=== PATIENT | male | born 1940 | race Caucasian/White ===

== ENCOUNTER → 2016-06-16 | Outpatient (CLI) | payer OTHER | LOC: BHFA 14:30 | PROVIDERS: ATTEND Internal Medicine Cardiovascular Disease | DX: M79.605 Pain in left leg (principal); I70.90 Unspecified atherosclerosis ==

== ENCOUNTER → 2016-07-22 | Outpatient (CLI) | payer OTHER ==
[~2016-07-22] MED LIST: IOPAMIDOL (ISOVUE 370) 100 ML BTL IV ONE
[2016-07-22 10:08] LABS: CREATININE 0.8 mg/dL (0.7-1.3); GLOMERULAR FILTRATION RATE > 60
== END ==
LOC: FIMAGING 09:16
PROVIDERS: ATTEND Surgery
DX: I74.3 Embolism and thrombosis of arteries of the lower extremities (principal); I74.5 Embolism and thrombosis of iliac artery; I72.4 Aneurysm of artery of lower extremity
CPT/HCPCS: 75635; Q9967

== ENCOUNTER 2016-09-25 08:33 | Observation (INO) | payer OTHER ==
[2016-09-25] MEDS ORDERED: DIAZEPAM 5 MG TAB PO ONE (08:37)
[2016-09-25] MEDS ORDERED: FAMOTIDINE 20 MG/NACL 50 ML IV ONE (08:37)
[2016-09-25] MEDS ORDERED: ASPIRIN EC 325 MG TAB PO ONE (08:37)
[2016-09-25] MEDS ORDERED: NS 1,000 ML IV ONE (08:37)
[2016-09-25] MEDS ORDERED: methylPREDNISolone SOD SUCC 125 MG/2 ML VIAL IVP ONE (08:37)
[2016-09-25 09:16] LABS: % IMMATURE GRANULYOCYTES 0.3 % (0.0-1.1); ABSOLUTE IMMATURE GRANULOCYTES 0.02 10^3/uL (0.00-0.10); ADD DIFF? NO; ADD MORPH? NO; ADD SCAN? NO; ATYPICAL LYMPHOCYTE FLAG 10 (0-99); FRAGMENT RBC FLAG 0 (0-99); HEMATOCRIT 45.3 % (40.0-51.0); HEMOGLOBIN 15.8 g/dL (13.7-17.5); LEFT SHIFT FLG 0 (0-99); LIPEMIA HEMOLYSIS FLAG 90 (0-99); MEAN CELL HEMOGLOBIN CONCENTR. 34.9 g/dL (32.4-36.7); MEAN CELL VOLUME 88.8 fL (81.5-99.8); MEAN PLATELET VOLUME 10.3 fL (8.7-11.7); PLATELET CLUMPS FLAG 0 (0-99); PLATELET COUNT 149 10^3/uL (150-400); RED CELL DISTRIBUTION WIDTH 13.1 % (11.5-15.2)
[2016-09-25 09:29] LABS: ANION GAP 13 mEq/L (8-16); CALCIUM 9.5 mg/dL (8.5-10.4); CARBON DIOXIDE 24 mEq/l (22-31); CHLORIDE 107 mEq/L (97-110); CHOLESTEROL 128 mg/dL (140-220); CREATININE 0.9 mg/dL (0.7-1.3); GLOMERULAR FILTRATION RATE > 60; GLUCOSE 100 mg/dL (70-100); HIGH DENSITY LIPOPROTEIN 40 mg/dL (40-65); LDL/HDL RATIO 1.73 RATIO (1.00-3.64); LOW DENSITY LIPOPROTEIN 69 mg/dL (80-100); MAGNESIUM 2.1 mg/dL (1.6-2.3); NON-HIGH DENSITY LIPOPROTEIN 88 mg/dL (90-129); POTASSIUM 4.4 mEq/L (3.5-5.2); SODIUM 144 mEq/L (134-144); TRIGLYCERIDE 96 mg/dL (40-150); VERY LOW DENSITY LIPOPROTEINS 19 mg/dL (8-25)
[2016-09-25 09:38] LABS: INR 1.1 (0.83-1.16); PROTIME(PATIENT) 14.1 SEC (12.0-15.0)
--- NOTE | 2016-09-25 09:45 | CPEKG ---
Heart Rate: 57 RR Interval: 1053 P-R Interval: 152 QRSD Interval: 88 QT Interval: 444 QTC Interval: 433 P Fontana: 35 QRS Fontana: -16 T Wave Fontana: 25 EKG Severity - OTHERWISE NORMAL ECG - EKG Impression: SINUS RHYTHM EKG Impression: BORDERLINE LEFT AXIS DEVIATION Electronically Signed By: Linden Almaguer 25-Sep-2016 16:06:07
[2016-09-25] MEDS ORDERED: LIDOCAINE 1% 300 MG/30 ML SDV ONE (11:08)
[2016-09-25] MEDS ORDERED: IOPAMIDOL (ISOVUE-370) 150 ML BTL IV ONE (11:09)
[2016-09-25] MEDS ORDERED: MIDAZOLAM 2 MG/2 ML VIAL ONE ×2 (11:09→11:45)
[2016-09-25] MEDS ORDERED: fentaNYL 100 MCG/2 ML INJ ONE (11:09)
[2016-09-25] MEDS ORDERED: VERAPAMIL 5 MG/2 ML VIAL ONE (11:09)
[2016-09-25] MEDS ORDERED: HEPARIN 10,000 UNIT/10 ML MDV ONE (11:09)
--- NOTE | 2016-09-25 16:07 | PDDXCAT ---
Diagnostic Cath Note - . Date: 09/25/16 Admiral[place] Lawyer: Elly Intervention: *Procedure 1. Abdominal Aortogram with bilateral iliac runoff Indication: Severe and lifestyle limiting claudication asked by Tom to fix inflow stenosis of left iliac Access: right radial, left femoral *Materials Cath Size: 6F Cath Materials: MP1, pigtail, 5.0 mm x 40 mm Correspondence Renew Clerk balloon, 8 mm x 37 mm [employer] LD Iliac/ Biliary balloon expandable stent *Procedure Overview The patient was prepped and draped in a sterile fashion. 1% Lidocaine was used to anesthetize the right radial region. A 6-[place]in[place] introducer sheath was placed selectively into the right radial artery via modified Seldinger technique. A 6- [place] pigtail catheter was placed in the abdominal aorta just below the renal arteries and position verified by angiography. Images were obtained via power injection through the [employer]. The distal abdominal aorta has moderate to severe diffuse disease. The distal abdominal aorta bifurcates into the right and left common iliac arteries. The left common iliac at the level of the internal and external iliac bifurcation is severely diseased with a greater than 90% stenosis. There is JERRI III flow at the level of the left common femoral with severely reduced pulses. The left common femoral artery was entered with a micro puncture set and ultimately upsized to a 7F sheath. A 0.035 angled [place] wire was advanced across the lesion in question and was exchanged with the use of a multi-purpose catheter for a standard exchange length J wire. GUSSET RIPPER of the common external iliac junction was accomplished with the 5 mm x 40 mm [employer] Renew Clerk balloon with a 40 % residual stenosis. It was then stented with the 8 mm x 37 mm [employer] LD Iliac/Biliary expandable stent. There was a residual stenosis of 15% post-stent. There was excellent JERRI III flow throughout following stent implantation. The BP 141 systolic when the arm was 139 at the level of the common femoral post stent implantation. A/P 1. The patient should be on DAPT and should take ASA 325 mg and Plavix 75 mg for 30 days following stent implantation. 2. Severe left common/external iliac obstruction with minimal stenosis and normal common femoral artery pressure post stent implantation. Complications: None Estimated Blood Loss: <50 ml Closure Method: TR Band, manual pressure Patient Problems: Problems Problem Status Onset Surgery, elective Acute
[2016-09-25] MEDS ORDERED: ACETAMINOPHEN 500 MG TAB PO PRN (20:19)
[2016-09-25] MEDS ORDERED: diphenhydrAMINE 25 MG CAP PO PRN (20:20)
[2016-09-25] MEDS ORDERED: ASPIRIN EC 81 MG TAB PO SCH (21:00)
[2016-09-25] MEDS ORDERED: ATORVASTATIN CALCIUM 20 MG TAB PO SCH (21:00)
[2016-09-25] MEDS ORDERED: METOPROLOL SUCCINATE XR 25 MG TAB PO SCH (21:00)
[2016-09-26] MEDS ORDERED: CLOPIDOGREL BISULFATE 75 MG TAB PO SCH (09:00)
[2016-09-26] MEDS ORDERED: RAMIPRIL 5 MG CAP PO SCH (12:00)
[2016-09-26 12:41] VITALS: BP 148/72; PULSE 69; RESP 18; TEMP 97.6; O2SAT 94
--- NOTE | 2016-09-26 16:32 | GDS ---
[f rep st] DISCHARGE SUMMARY ADMIT DIAGNOSES: 1. Peripheral vascular claudication. 2. Planned peripheral vascular studies of left leg. 3. Planned abdominal aortogram. DISCHARGE DIAGNOSES: 1. Status post left peripheral vascular stent. 2. Abdominal aortogram with bilateral iliac runoff. COURSE OF HOSPITALIZATION: This gentleman was referred to Dr. Patrick Sanabria by Dr. Dino Santos aft er Dr. Santos performed arterial studies because of left leg claudication symptoms. He had decreased tracings on the left leg from the proximal left side down. The ankle-brachial index on the left wa s 0.41 and on the right 0.88. This indicated evidence of either a high superficial femoral artery o r common femoral artery stenosis on the left. He referred him to Dr. Patrick Sanabria for further perip heral studies to determine the need for possible stent placement to the left femoral artery. Dr. Sanabria took him to the quality assurance/r&d lab technician on 09/25/2016. An abdominal aortogram with bilateral iliac runo ff was done due to severe lifestyle limiting claudication. Access for the procedures were right rad ial and left femoral sites. Right radial access was utilized to evaluate the abdominal aorta just b elow the renal arteries and position was verified by angiography. The distal abdominal aorta has mo derate to severe diffuse disease. Distal abdominal aorta bifurcates into the right and left common iliac artery. The left common iliac at the level of the internal and external iliac bifurcation is severely diseased with greater than 90% stenosis. There was JERRI-3 flow at the level of the left com mon femoral, and severely reduced pulses. The left common femoral artery was entered and a stent was successfully placed. There was excellent JERRI-3 flow throughout following stent placement. The blood pressure was 141 systolic when the arm was 139, at the level of the common femoral post stent implantation. PLAN: 1. He should be on DAPT and should take aspirin 325 mg and Plavix 75 mg for 30 days following the s tent placement. 2. Severe left common/external iliac obstruction with minimal stenosis and normal common femoral ar gianfranco pressure post stent implantation. 3. Groin site is intact with no bleeding, induration or tenderness on the left groin. Right wrist access site shows ecchymoses with good radial ulnar pulses. He has good sensation in his hand and f ingers with good collateral refill. RECOVERY: He has been up in the room and has had no discomfort or bleeding from the groin site or w rist site. At this time he is stable for discharge. MEDICATIONS: He is discharged on simvastatin 40 mg at bedtime, Altace 5 mg daily, metoprolol succin ate 25 mg at bedtime. Aspirin, enteric-coated, 81 mg at bedtime, Plavix 75 mg daily. PHYSICAL EXAM: VITAL SIGNS: On day of discharge, blood pressure 148/72, heart rate 69 and regular, oxygen saturation 94%. Temperature 36.4 Celsius. HEART: EKG showed a sinus rhythm with no arrhyt hmias. Heart rate was regular. No murmurs, rubs, or gallops. LUNGS: Sounds are clear to ausculta tion. No wheezes, rales, or rhonchi. RIGHT WRIST: Access site is intact with no bleeding. There is ecchymosis at the site. He has good ulnar radial pulses with good capillary refill. Left groin s ite is intact with no bleeding, induration or pain. Femoral pulses are present. Peripheral pulses bilateral are 1 to 2+. Peripheral procedure as described earlier. There were no complications. DISCHARGE PLAN: He will follow up with NADIA Ashraf, and Dr. Sanabria in 2-3 weeks. Groin site and wrist site instructions were given verbally and written. He was reminded for the emily in site to avoid lifting, pushing, pulling greater than 10 pounds for 1 week. He is not to sit in a tub of water but it is okay for him to shower for the 1st week. Risks precautions were reviewed. Should he have any complications he will call the office. He will avoid lifting, pushing, pulling, greater than 10 pounds for the next 48 hours and notify us should the site start bleeding or he notes arm numbness or pain. He understands the importance of Plavix and aspirin and that he will be on it for the next 30 days. He will see Dr. Sanabria prior to that time for further recommendations to proceed with Dr. Dino hankins. At this time, he currently is stable for discharge. /[id number]/MODL
== END 2016-09-26 14:55 | disposition home or self-care (01) ==
LOC: FCATH 08:33 → F2W 16:32
PROVIDERS: ADMIT Internal Medicine Cardiovascular Disease; ATTEND Internal Medicine Cardiovascular Disease
PROC: 047J3D6 (ICD-10-PCS; principal; 2016-09-25)
PROC: B41D1ZZ Fluoroscopy of Aorta and Bilateral Lower Extremity Arteries using Low Osmolar Contrast (ICD-10-PCS; principal; 2016-09-25)
DX: I73.9 Peripheral vascular disease, unspecified (principal); I10 Essential (primary) hypertension
CPT/HCPCS: 37221; 75625; 93005; C1725; C1769; C1876; J1200; J1644; J2250; J3010; Q9967

== ENCOUNTER 2016-11-18 10:06 | Inpatient (IN) | payer OTHER ==
--- NOTE | 2016-11-17 18:19 | GHP ---
[f rep st] PREOP HISTORY AND PHYSICAL DATE OF ADMISSION: 11/18/2016 HISTORY OF PRESENT ILLNESS: Patient is a 76-year-old male with known peripheral vascular disease, w ho complains of left leg claudication and is now going to be admitted for a left femoral popliteal a rterial bypass surgery. Patient has iliac stenosis and severe left common femoral, superficial chico ry occlusions. He has had an angiogram with placement of an iliac expandable stent with his cardiol ogist. He has been on aspirin and Plavix. Now that he has better inflow after his angioplasty and stent, we will proceed with a left femoral-popliteal bypass. Risks and options have been fully disc ussed including, but not limited to, bleeding, infection, injury to a nerve, clotting, damage surrou nding structures, limb ischemia, limb loss, and other problems, and he requests to proceed. PAST MEDICAL HISTORY: Includes coronary artery disease, hypertension, peripheral vascular disease, hypercholesteremia, history of elevated liver enzymes, history of fatigue, history of cardiac murmur . PAST SURGICAL HISTORY: Appendectomy, CABG x4, iliac artery endarterectomy, iliofemoral endarterecto my. MEDICATIONS: Aleve, aspirin, metoprolol, Plavix, ramipril, simvastatin. ALLERGIES: Contrast dye. FAMILY MEDICAL HISTORY: Cardiovascular disease. SOCIAL HISTORY: Patient has 5 adult children. He occasionally drinks 1-2 drinks a day. He quit sm oking over 20 years ago. REVIEW OF SYSTEMS: Negative aside from that in the HPI. A 10-point review done. GENERAL: Reveals a generally healthy, pleasant 76-year-old male, in no acute distress. HEENT: No cervical bruits or a denopathy. No thyromegaly. CHEST: Clear to auscultation bilaterally. CARDIAC: Regular rate and r hythm. ABDOMEN: Soft, without masses or tenderness. Positive for iliac bruits prior to stenting. EXTREMITIES: Well-healed right groin incision. Palpable distal right pulses, markedly decreased l eft pedal pulses. Improved left femoral pulses post stenting. ASSESSMENT: This is a 76-year-old male, with limiting left leg claudication now status post inflow stenting of the iliacs. PLAN: Plan is to proceed with a left femoral-popliteal arterial bypass. Risks and options have bee n fully discussed and he requests to proceed. /[id number]/MODL
[2016-11-18] MEDS ORDERED: ceFAZolin 2 GM/DEXTROSE 100 ML IV ONE (10:19)
[2016-11-18] MEDS ORDERED: LR 1,000 ML IV ONE (10:20)
[2016-11-18] MEDS ORDERED: LIDOCAINE 1% 2 ML INJ ID PRN (10:20)
[2016-11-18] MEDS ORDERED: THROMBIN (BOVINE) 20,000 UNIT SPRAY TP ONE (11:22)
[2016-11-18] MEDS ORDERED: PROTAMINE SULFATE 50 MG/5 ML VIAL IVP ONE (11:22)
[2016-11-18] MEDS ORDERED: PAPAVERINE HCL 60 MG/2 ML SDV ONE (11:23)
[2016-11-18] MEDS ORDERED: IOTHALAMATE MEG (CONRAY) 50 ML VIAL IV ONE (11:23)
[2016-11-18] MEDS ORDERED: BUPIVACAINE 0.5% 30 ML SDV ONE (11:23)
[2016-11-18] MEDS ORDERED: MIDAZOLAM 2 MG/2 ML VIAL IVP ONE (13:10)
[2016-11-18] MEDS ORDERED: ALBUTEROL 3 ML DEYVIAL IH PRN (13:11)
[2016-11-18] MEDS ORDERED: NALOXONE HCL 0.4 MG/ML INJ IVP PRN (13:11)
[2016-11-18] MEDS ORDERED: fentaNYL 100 MCG/2 ML INJ IVP PRN (13:11)
[2016-11-18] MEDS ORDERED: ACETAMINOPHEN 500 MG TAB PO PRN (13:11)
[2016-11-18] MEDS ORDERED: HYDROmorphONE/DILAUDID 1 MG/ML INJ IVP PRN (13:11)
[2016-11-18] MEDS ORDERED: ONDANSETRON 4 MG/2 ML VIAL IVP PRN ×2 (13:11→17:23)
--- NOTE | 2016-11-18 13:15 | PDANEPAE ---
ANE History of Present Illness Fem-Pop ANE Past Medical History - Cardiovascular History Hx Hypertension: Yes Hx Arrhythmias: No Hx Chest Pain: No Hx Coronary Artery / Peripheral Vascular Disease: Yes Hx CHF / Valvular Disease: No Hx Palpitations: No - Pulmonary History Hx COPD: No Hx Asthma/Reactive Airway Disease: No Hx Recent Upper Respiratory Infection: No Hx Oxygen in Use at Home: No Hx Sleep Apnea: No Pulmonary History Comment: CHEWS TOBACCO - Neurologic History Hx Cerebrovascular Accident: No Hx Seizures: No Hx Dementia: No - Endocrine History Hx Diabetes: No - Renal History Hx Renal Disorders: No - Liver History Hx Hepatic Disorders: No - Neurological & Psychiatric Hx Hx Neurological and Psychiatric Disorders: No - Cancer History Hx Cancer: No - Congenital Disorder History Hx Congenital Disorders: No - GI History Hx Gastrointestinal Disorders: No - Chronic Pain History Chronic Pain: Yes (BOTH LEGS) - Surgical History Prior Surgeries: LT FEMORAL ARTERY 08/2009. CABG X3 2006. KNEE SCOPE ANE Review of Systems Review of systems is: negative - Exercise capacity METS (RN): 4 METS ANE Patient History - Allergies Allergies/Adverse Reactions: Iodinated Contrast- Oral and IV Dye [IV Dye, Iodine Containing] Allergy ( Intermediate, Verified 08/28/15 13:28) Other-Enter Comments - Home Medications Home Medications: Metoprolol Succinate Xr [Toprol Xl 25 mg (*)] 25 mg PO HS 08/28/15 [Last Taken 11/17/16] Ramipril [Altace 5mg (*)] 5 mg PO DAILY@12 08/28/15 [Last Taken 11/17/16] Simvastatin [Zocor] 40 mg PO HS 08/28/15 [Last Taken 11/17/16] Acetamn/Diphenhydramine 500/25 [Tylenol PM (*)] 2 each PO HS PRN 09/25/16 [Last Taken 11/11/16] - NPO status NPO Since - Liquids (Date): 11/18/16 NPO Since - Liquids (Time): 00:00 NPO Since - Solids (Date): 11/17/16 NPO Since - Solids (Time): 20:00 - Smoking Hx Smoking Status: Former smoker ANE Labs/Vital Signs - Vital Signs Blood Pressure: 153/87 Heart Rate: 74 Respiratory Rate: 16 O2 Sat (%): 92 ANE Physical Exam - Airway Neck exam: FROM Mallampati Score: Class 2 Mouth exam: dentures - Pulmonary Pulmonary: clear to auscultation - Cardiovascular Cardiovascular: regular rate and rhythym - ASA Status ASA Status: III ANE Anesthesia Plan Anesthesia Plan: general endotracheal anesthesia
[2016-11-18] MEDS ORDERED: MIDAZOLAM 2 MG/2 ML VIAL ONE (13:19)
[2016-11-18] MEDS ORDERED: PROPOFOL 200 MG/20 ML VIAL ONE (13:21)
[2016-11-18] MEDS ORDERED: fentaNYL 100 MCG/2 ML INJ ONE ×3 (13:21→16:37)
[2016-11-18] MEDS ORDERED: ROCURONIUM 50 MG/5 ML VIAL ONE (13:22)
[2016-11-18] MEDS ORDERED: LIDOCAINE 2% 5 ML SDV ONE (13:22)
[2016-11-18] MEDS ORDERED: PHENYLEPHRINE HCL 100 MCG/ML SYR ONE (13:37)
[2016-11-18] MEDS ORDERED: epHEDrine SULFATE 10 MG/ML SYR ONE (14:00)
[2016-11-18] MEDS ORDERED: HEPARIN 10,000 UNIT/10 ML MDV ONE (15:08)
--- NOTE | 2016-11-18 16:36 | ASMTCASEMG ---
Case Management Evaluation Functional: ADL / IADL Performance Deficits Due Answers: Chronic Illness to: Mobility Issues Discharge Plan Comments Coordination Status Comments Notes: 76yo man admitted for L leg pain-PVD. He has a Hx of CAD-CABG x 4, HTN, Hypercholesterolemia, Murmu r. This is POD#1 of L Fem-Pop [place]. Pt lives alone, DTR and Son in the area. Therapies to eval for D/C needs. CM to follow. Date Signed: 11/18/2016 04:35 PM Electronically Signed By:Kamini Meek
--- NOTE | 2016-11-18 16:53 | POSTANESTH ---
Post Anesthetic Evaluation Cardiovascular Status: Normal, Stable Respiratory Status: Normal, Stable Level of Consciousness/Mental Status: Can Participate in Eval, Alert and Oriented Pain Control: Adequate, Prn Tx Ordered Nausea/Vomiting Control: Adequate, Prn Tx Ordered Complications Possibly Related to Anesthesia: None Noted
--- NOTE | 2016-11-18 17:28 | POSTOPPROG ---
Post Op Note Date of Operation: 11/18/16 Surgeon: Reji Santos Lap Grinder: Claire Decker Anesthesiologist: Abran Dutta Anesthesia: GET(General Endotracheal) Pre-op Diagnosis: severe PVD, limiting L leg claudication Post-op Diagnosis: same Procedure: L fem pop bypass with endarterectomy and profundoplasty Findings: good DP pulse post procedure Inf/Abcess present in the surg proc area at time of surgery?: No EBL: 50-100 Complications: none Specimen(s): plaque to pathology
[2016-11-18] MEDS: NS W/ 20 KCl/L 1,000 ML IV SCH (18:02)
[2016-11-18] MEDS: DOCUSATE SODIUM 100 MG CAP PO SCH (20:06)
[2016-11-18] MEDS: OXYCODONE/APAP 5/325 TAB PO PRN ×2 (20:06→23:09)
[2016-11-18] MEDS: HYDROmorphONE/DILAUDID 1 MG/ML INJ IVP PRN ×2 (20:14→23:09)
[2016-11-19] MEDS: NS W/ 20 KCl/L 1,000 ML IV SCH (01:50)
[2016-11-19 04:29] LABS: HEMOGLOBIN 12.2 g/dL (13.7-17.5)
[2016-11-19 04:41] LABS: ANION GAP 7 mEq/L (8-16); CALCIUM 7.9 mg/dL (8.5-10.4); CARBON DIOXIDE 23 mEq/l (22-31); CHLORIDE 104 mEq/L (97-110); CREATININE 0.9 mg/dL (0.7-1.3); GLOMERULAR FILTRATION RATE > 60; GLUCOSE 103 mg/dL (70-100); POTASSIUM 4.3 mEq/L (3.5-5.2); SODIUM 134 mEq/L (134-144)
[2016-11-19] MEDS: DOCUSATE SODIUM 100 MG CAP PO SCH ×2 (10:21→20:07)
[2016-11-19] MEDS: OXYCODONE/APAP 5/325 TAB PO PRN ×2 (11:34→20:07)
--- NOTE | 2016-11-19 17:18 | SOAPPROG ---
SOAP Progress Note Assessment/Plan: A/P: 76 Y M s/p left fem pop bypass, POD#1. Doing well. Seen by Dr. Santos. Ok for transfer from ICU to PCU. D/c roberts. PT/ OT. Great L DP pulse. Foot is warm. Wounds c/d/i. Pain controlled. Afebrile. 11/19/16 17:14 Objective: Vital Signs Temp Pulse Resp BP Pulse Ox 36.4 C 78 18 134/72 H 93 11/19/16 16:00 11/19/16 16:00 11/19/16 16:00 11/19/16 16:00 11/19/16 16:00 Laboratory Results 11/19/16 04:10 11/19/16 04:10 11/18/16 11/19/16 11/20/16 05:59 05:59 05:59 Intake Total 4200 550 Output Total 500 625 Balance 3700 -75 ICD10 Worksheet Patient Problems: Problems Problem Status Onset PVD (peripheral vascular disease) with claudication Acute Surgery, elective Acute
[2016-11-20] MEDS: ENOXAPARIN 40 MG/0.4 ML SYR SC SCH (09:29)
[2016-11-20] MEDS: DOCUSATE SODIUM 100 MG CAP PO SCH ×2 (09:29→19:46)
--- NOTE | 2016-11-20 09:44 | SOAPPROG ---
SOAP Progress Note Assessment/Plan: Assessment: A/P: 76 Y M s/p left fem pop bypass, POD#2. PT/OT Pain control PVR and BETHANY Dispo: to home or rehab. Awaiting PT/OT recommendations Seen with Dr. Santos. S: complaining of pain in the left leg. O: Afebrile Dressing clean and dry + left DP pulse Full ROM LLE strength and sensation intact Objective: Vital Signs Temp Pulse Resp BP Pulse Ox 36.5 C 77 17 113/66 99 11/20/16 08:00 11/20/16 08:00 11/20/16 08:00 11/20/16 08:00 11/20/16 08:00 Laboratory Results 11/19/16 04:10 11/19/16 04:10 11/19/16 11/20/16 11/21/16 05:59 05:59 05:59 Intake Total 4200 1050 Output Total 500 1625 Balance 3700 -575 ICD10 Worksheet Patient Problems: Problems Problem Status Onset PVD (peripheral vascular disease) with claudication Acute Surgery, elective Acute
[2016-11-20] MEDS: ATORVASTATIN CALCIUM 20 MG TAB PO SCH (11:05)
--- NOTE | 2016-11-20 16:20 | ASMTCMCOM ---
CM Note CM Note Notes: CM met w/ pt to discuss dispo planning. PT/OT recommending HC. CM provided pt w/ list of HC. Pt would like HC services through [facility]. Referral faxed over to [facility]. Pt has been accepted for HC services. Consulted w/ Alina from [facility] and will speak w/ pt and provide info about services. Chelsie will be back tomorrow AM to check in w/ pt. Date Signed: 11/20/2016 04:19 PM Electronically Signed By:Tarsha Brooks
[2016-11-20] MEDS: OXYCODONE/APAP 5/325 TAB PO PRN (19:47)
[2016-11-21] MEDS: ENOXAPARIN 40 MG/0.4 ML SYR SC SCH (08:28)
[2016-11-21] MEDS: ATORVASTATIN CALCIUM 20 MG TAB PO SCH (08:28)
[2016-11-21] MEDS: DOCUSATE SODIUM 100 MG CAP PO SCH ×2 (08:29→20:13)
--- NOTE | 2016-11-21 10:22 | SOAPPROG ---
SOAP Progress Note Assessment/Plan: Assessment: A/P: 76 Y M s/p left fem pop bypass, POD#3. PT/OT Pain control PVR and BETHANY Dispo: to home tomorrow with home care per PT and case management recs Seen with Dr. Santos. S: No complaints today. Would like to stay over tonight, home tomorrow. O: Afebrile Dressing clean and dry + left DP pulse Full ROM LLE strength and sensation intact Objective: Vital Signs Temp Pulse Resp BP Pulse Ox 37.2 C 83 18 132/75 H 100 11/21/16 08:00 11/21/16 08:00 11/21/16 08:00 11/21/16 08:00 11/21/16 08:00 Laboratory Results 11/19/16 04:10 11/19/16 04:10 11/20/16 11/21/16 11/22/16 05:59 05:59 05:59 Intake Total 1050 2380 Output Total 1625 1325 Balance -575 1055 ICD10 Worksheet Patient Problems: Problems Problem Status Onset PVD (peripheral vascular disease) with claudication Acute Surgery, elective Acute
--- NOTE | 2016-11-21 10:28 | SOAPPROG ---
SOAP Progress Note Assessment/Plan: Assessment: A/P: 76 Y M s/p left fem pop bypass, POD#3. Ppx IS PT/OT Pain control PVR and BETHANY Dispo: to home tomorrow with home care per PT and case management recs Seen with Dr. Santos. S: No complaints today. O: Dressing clean and dry + left DP pulse Full ROM LLE strength and sensation intact 11/21/16 10:56 Objective: Vital Signs Temp Pulse Resp BP Pulse Ox 37.2 C 83 18 132/75 H 100 11/21/16 08:00 11/21/16 08:00 11/21/16 08:00 11/21/16 08:00 11/21/16 08:00 Laboratory Results 11/19/16 04:10 11/19/16 04:10 11/20/16 11/21/16 11/22/16 05:59 05:59 05:59 Intake Total 1050 2380 Output Total 1625 1325 Balance -575 1055 ICD10 Worksheet Patient Problems: Problems Problem Status Onset PVD (peripheral vascular disease) with claudication Acute Surgery, elective Acute
[2016-11-21] MEDS: OXYCODONE/APAP 5/325 TAB PO PRN (12:19)
--- NOTE | 2016-11-21 16:37 | ASMTCMCOM ---
CM Note CM Note Notes: Alina from [facility] was here today and saw pt. Pt is schedule to discharge tomorrow and [facility] will start services on Thursday. CM will fax over discharge orders at time of d/c. IM delivered. Date Signed: 11/21/2016 04:36 PM Electronically Signed By:Tarsha Brooks
[2016-11-22] MEDS: OXYCODONE/APAP 5/325 TAB PO PRN ×2 (02:36→14:32)
[2016-11-22] MEDS: DOCUSATE SODIUM 100 MG CAP PO SCH (08:35)
[2016-11-22] MEDS: ENOXAPARIN 40 MG/0.4 ML SYR SC SCH (08:35)
[2016-11-22] MEDS: ATORVASTATIN CALCIUM 20 MG TAB PO SCH (08:35)
[2016-11-22 09:15] VITALS: TEMP 97.7
--- NOTE | 2016-11-22 09:34 | SOAPPROG ---
SOAP Progress Note Assessment/Plan: A/P: 76 Y M s/p left fem pop bypass, POD#4. Doing well. D/c to home today with daughter and home PT and RN. Seen and examined with Dr. Gay. S: ready to go home. walking ok. pain controlled. O: alert, nad mmm chest clear rrr abd soft inc cdi +L DP pulse 11/22/16 09:31 Objective: Vital Signs Temp Pulse Resp BP Pulse Ox 36.5 C 129 H 17 120/73 96 11/22/16 07:55 11/22/16 07:55 11/22/16 07:55 11/22/16 07:55 11/22/16 07:55 Laboratory Results 11/19/16 04:10 11/19/16 04:10 11/21/16 11/22/16 11/23/16 05:59 05:59 05:59 Intake Total 2380 1440 Output Total 1325 1450 Balance 1055 -10 ICD10 Worksheet Patient Problems: Problems Problem Status Onset PVD (peripheral vascular disease) with claudication Acute Surgery, elective Acute
--- NOTE | 2016-11-22 09:39 | PDIAF ---
- Diagnosis Diagnosis: PVD, s/p femoropopliteal bypass Code Status: Full Code - Medication Management Discharge Medications: Medications to Continue on Transfer Metoprolol Succinate Xr [Toprol Xl 25 mg (*)] 25 mg PO HS 08/28/15 [Last Taken 11/17/16] Ramipril [Altace 5mg (*)] 5 mg PO DAILY@12 08/28/15 [Last Taken 11/17/16] Simvastatin [Zocor] 40 mg PO HS 08/28/15 [Last Taken 11/17/16] Acetamn/Diphenhydramine 500/25 [Tylenol PM (*)] 2 each PO HS PRN 09/25/16 [Last Taken 11/17/16] Aspirin EC [Aspirin EC 81 mg (*)] 243 mg PO HS 11/18/16 [Last Taken 11/17/16] oxyCODONE/APAP 5/325 [Percocet 5/325 (*)] 1 - 2 tab PO Q4 PRN #30 tab 11/22/16 [ Last Taken Unknown] Discharge Medications: Refer to the Discharge Home Medication list for PRN reason. PICC Care - Routine: N/A - Orders Services needed: Home Care, Registered Nurse, Physical Therapy Home Care Face to Face: I certify that this patient was under my care and that I had the required [id number] encounter meeting the encounter requirements on the discharge day. My findings support the fact that the patient is homebound as defined in CMS Chapter 7 Medicare Benefits Manual 30.1.1, The condition of the patient is such that there exists a normal inability to leave home and consequently, leaving home would require a considerable and taxing effort. Diet Recommendation: no restrictions on diet Diet Texture: Regular Texture Diet Wound Care Instructions: may leave open to air if dry. ok to shower. avoid baths /pools Sutures/[place] Site: to be removed in the office Activity/Weight Bearing Restrictions: no lifting greater than 20 lbs. avoid severe bending at hip and knee. - Follow Up Care Current Providers and Referrals: Abran Denton MD [Primary Care Provider] - Reji Santos MD [Medical Doctor] - follow up in 10 days
--- NOTE | 2016-11-22 10:02 | GDS ---
[f rep st] DISCHARGE SUMMARY DISCHARGE DIAGNOSIS: Peripheral vascular disease with left common femoral, superficial artery occlu sions. OTHER DIAGNOSES: Include a recent iliac stent for PVD, coronary artery disease, hypertension, hyper cholesteremia. PROCEDURES: Left femoral-popliteal bypass with endarterectomy and profundoplasty. HOSPITAL COURSE: Mr. España is a 76-year-old male, who underwent a left femoral-popliteal bypass [facility] with endarterectomy and profundoplasty with Dr. Reji Santos. The procedure was uncomplicate d and he tolerated it well. He had an excellent palpable dorsalis pedis pulse postprocedure. The patient's postoperative course was uneventful. He is kept on bedrest overnight. This was lifte d in the morning. His Dorsey catheter was removed and he was able to void spontaneously. He worked with physical therapy and occupational therapy. His pain was well controlled. He tolerated diet. DISCHARGE INSTRUCTIONS: Patient was discharged to home in stable condition to his daughter's house with home physical therapy and nursing. He should follow up in our office in 7-10 days or sooner if he has any problems or concerns. /[id number]/MODL
[2016-11-22 12:22] VITALS: BP 124/69; PULSE 102
[2016-11-22 12:23] VITALS: RESP 20; O2SAT 96
--- NOTE | 2016-11-23 09:36 | ASDISCHSUM ---
Discharge Information Plan Status:Home with Home Health Medically Cleared to Leave:11/22/2016 Discharge Date:11/22/2016 03:41 PM CM D/C Disposition:Home Health Service [facility] D/C Disposition:Home, Routine, Self-Care Projected Discharge Date:11/22/2016 11:00 AM Transportation at D/C:Family Discharge Delay Reason: Follow-Up Date:11/23/2016 Discharge Slot: Final Diagnosis: Placement Information Referral Type:*Home Health Care Services Referral ID:[id number] Provider Name:[facility] [place] Address 1:[address] [address] Phone Number: Address 2: Fax Number: City:[place] Selection Factors: State:[place] Patient Contact Information Contact Name:NAKUL Relationship:Daughter Address:[address] City:[place] Alternate Phone: State/Zip Code:[place] [address] Email: Financial Information Financial Class: Primary Plan Desc:MEDICARE INPATIENT Primary Plan Number:[id number] Secondary Plan Desc:[employer] PPO Secondary Plan Number:[id number] Assessment Information [facility] Initial CM Assessment Case Management Evaluation Functional: ADL / IADL Answers: Chronic Illness Performance Deficits Due to: Mobility Issues Discharge Plan Comments Coordination Status Comments Notes: 76yo man admitted for L leg pain-PVD. He has a Hx of CAD-CABG x 4, HTN, Hypercholesterolemia, Murmur. This is POD#1 of L Fem-Pop [place]. Pt lives alone, DTR and Son in the area. Therapies to eval for D/C needs. CM to follow. Date Signed: 11/18/2016 04:35 PM Electronically Signed By:Kamini Meke [facility] CM Progress Note CM Note CM Note Notes: CM met w/ pt to discuss dispo planning. PT/OT recommending HC. CM provided pt w/ list of HC. Pt would like HC services through [facility]. Referral faxed over to [facility]. Pt has been accepted for HC services. Consulted w/ Alina from [facility] and will speak w/ pt and provide info about services. Chelsie will be back tomorrow AM to check in w/ pt. Date Signed: 11/20/2016 04:19 PM Electronically Signed By:Tarsha Brooks [facility] [employer] Progress Note CM Note CM Note Notes: Alina from [facility] was here today and saw pt. Pt is schedule to discharge tomorrow and [facility] will start services on Thursday. CM will fax over discharge orders at time of d/c. IM delivered. Date Signed: 11/21/2016 04:36 PM Electronically Signed By:Tarsha Brooks Intervention Information Intervention Type:*IM-Signed Date of Service:11/21/2016 04:37 PM Patient Type:Inpatient Staff Member:Tarsha Brooks Hours: Discipline: Severity: Comment:
--- NOTE | 2016-11-25 03:16 | CPR ---
[f rep st] NONINVASIVE CARDIAC PROCEDURE REPORT DATE OF PROCEDURE: 11/20/2016 VASCULAR LAB TEST Postop arterial studies after left fem-pop bypass demonstrates excellent DVR tracings at the ankle l evel, both right and left. Ankle brachial index on the left at 0.70, on the right of 1.2. IMPRESSION: Good peripheral perfusion on the left and right. The tracings are much better than the stated 0.70 ankle brachial index, and the patient has palpable pulses. Excellent DVR tracings postoperatively. /[id number]/MODL
--- NOTE | 2016-11-30 13:47 | GOP ---
[f rep st] OPERATIVE REPORT DATE OF OPERATION: 11/18/2016 SURGEON: Reji Santos MD ROAD SIGN INSTALLER: Claire Decker PA-C ANESTHESIOLOGIST: Abran Dutta IV, DO PREOPERATIVE DIAGNOSIS: Left leg limiting claudication. POSTOPERATIVE DIAGNOSIS: Left leg limiting claudication. PROCEDURE PERFORMED: 1. Left common femoral artery and profunda femoris endarterectomies. 2. Left femoral-popliteal bypass With profundoplasty FINDINGS: The patient was found to have severe obstruction, near-occlusion, of the common femoral artery and the profunda femoris origin, with calcified plaque. The superficial femoral artery was completely occluded. He had a good , soft popliteal vessel, however, for bypass above the knee. DESCRIPTION OF PROCEDURE: The was taken to the operating room , where he received satisfactory general endotracheal anesthesia by Dr. Dutta. He was placed in supine position, prepped and draped in the usual sterile fashion. A vertical incision was made in the left groin. Dissection was carried down to the common femoral, superficial femoral, and profunda femoris arteries, and any other small branches were dissected free and controlled with vessel loops. Dissection was fairly difficult for someone without previous major surgery in this area, although he did have vein harvesting for coronary bypass. A 2nd incision was then made in the medial aspect of the left thigh. Dissection was carried down through the subcutaneous tissue and into Escobar canal, which was unroofed. The popliteal space was entered and the popliteal artery was dissected free and controlled with vessel loops. It appeared to be quite soft and usable for bypass. The patient was systemically heparinized. An 8-6 Impra graft was used. End-to-side anastomosis was made to the popliteal artery with a running Hemashield 7 suture. The suture line was tested with a heparin flush injection and it appeared to be hemostatic. There was some backflow from the [place] vessels. The graft was crossclamped. It was then passed in a subsartorial tunnel to the groin incision. Femoral vessels were then occluded with vessel loops. A vertical incision was made in the common femoral artery and extended down through the profunda femoris for approximately 1 inch. Endarterectomy was then done of the common femoral artery, including the origin of the profunda femoris, until all debris was cleared out. Hemostasis was assured and the distal as appeared to be intact. The origin of the SFA was completely occluded. The [place] Impra graft was then fashioned with a garcia to cover the entire opening. This was on-laid as a profundoplasty graft and sutured in place with a running Hemashield 6 suture. All vessels were flushed prior to completion of the anastomosis. Flow was first established through the [place] SFA, and then into the profunda, and finally into the bypass graft. The suture line appeared to be quite hemostatic. Heparin was reversed with protamine. The distal anastomosis appeared to be hemostatic as well. The wounds were irrigated. They were infiltrated with 0.5% Marcaine and closed in layers using 2-0 Vicryl for the fascia, 3-0 Vicryl for the subcu, skin earline for the skin. The patient had good palpable pedal pulses at the completion of the procedure. There were no complications. Blood loss was less than 100 cc. He was taken to the recovery room in good condition. /[id number]/MODL MTDD
== END 2016-11-22 15:41 | disposition home or self-care (01) | DRG 254 ==
LOC: F2W 10:06 → F2N 15:00 → F2W 11-19 15:22
PROVIDERS: ADMIT Surgery; ATTEND Surgery
PROC: 041L0ZL Bypass Left Femoral Artery to Popliteal Artery, Open Approach (ICD-10-PCS; principal; 2016-11-18 12:00)
PROC: 04CL0ZZ Extirpation of Matter from Left Femoral Artery, Open Approach (ICD-10-PCS; principal; 2016-11-18 12:00)
DX: I73.9 Peripheral vascular disease, unspecified (principal); I25.10 Atherosclerotic heart disease of native coronary artery without angina pectoris; I10 Essential (primary) hypertension; E78.00 Pure hypercholesterolemia, unspecified; Z95.1 Presence of aortocoronary bypass graft
CPT/HCPCS: 97116-GP; 97161-GP; 97166-GO; 97530-GO; 97530-GP; 97535-GO; C1768; G8978-GP-CJ; G8979-GP-CI; G8987-GO-CK; G8988-GO-CI; J0690; J1170; J1644; J1650; J2250; J2370; J2440; J2704; J2720; J3010; Q9961

== ENCOUNTER → 2017-01-19 | Outpatient (CLI) | payer OTHER | LOC: BHFA 13:00 | PROVIDERS: ATTEND Internal Medicine | DX: I73.9 Peripheral vascular disease, unspecified (principal) ==

== ENCOUNTER → 2017-02-26 | Outpatient (CLI) | payer OTHER ==
[~2017-02-26] MED LIST changes: +IOPAMIDOL (ISOVUE-300) 100 ML BTL ONE
== END ==
LOC: FIMAGING 12:45
PROVIDERS: ATTEND Surgery
DX: T82.868A Thrombosis due to vascular prosthetic devices, implants and grafts, initial encounter (principal); I74.3 Embolism and thrombosis of arteries of the lower extremities; J84.10 Pulmonary fibrosis, unspecified; J43.9 Emphysema, unspecified
CPT/HCPCS: 75635; Q9967

== ENCOUNTER → 2018-01-19 | Outpatient (CLI) | payer OTHER | LOC: FIMAGING 10:16 | PROVIDERS: ATTEND Internal Medicine Cardiovascular Disease | DX: J84.10 Pulmonary fibrosis, unspecified (principal); Z95.5 Presence of coronary angioplasty implant and graft ==

== ENCOUNTER → 2018-01-28 | Outpatient (CLI) | payer OTHER | LOC: BHFA 09:00 | PROVIDERS: ATTEND Internal Medicine | DX: I25.10 Atherosclerotic heart disease of native coronary artery without angina pectoris (principal) ==

== ENCOUNTER → 2018-01-29 | Outpatient (CLI) | payer OTHER ==
[~2018-01-29] MED LIST changes: -IOPAMIDOL (ISOVUE 370) 100 ML BTL IV ONE; -IOPAMIDOL (ISOVUE-300) 100 ML BTL ONE; +REGADENOSON 0.4 MG/5 ML SYR IVP ONE
--- NOTE | 2018-01-29 23:02 | CPR ---
INDICATION FOR PROCEDURE: Shortness of breath, known history of CAD, unable to walk on treadmill. PRE: After obtaining informed consent, ensuring patient's n.p.o. status of caffeine for greater than 12 hours, the patient was placed on EKG. Initial EKG showed sinus rhythm, Q-waves noted in inferior leads, question old infarct, with nonspecific T-wave abnormalities in inferior leads. The patient d enies any chest pain, pressure or symptoms suggesting of ischemia. Initial blood pressure 120/62, sa turation 94%. INJECTION: Patient was given Lexiscan slow IV push followed by nuclear isotope. The patient noted t o have elevated heart rate, but no significant EKG changes, blood pressure remained stable at 120/60. Within 1 minute post injection, patient did report some mild flushing, but no symptoms of ischemia post injection. Within 5 minutes, patient reports symptoms subsided. Heart rate returned down to 79 beats per minute, no EKG changes. Final blood pressure 122/60. Saturation 98%. IMPRESSION: 77-year-old male with past history of coronary artery disease, noticing shortness of gisele ath, undergoing Lexiscan MPI study for evaluation of ischemia. No significant EKG changes with Teagan can injection. The patient did report mild flushing sensation post injection which subsided within 5 minutes. Vital signs stable throughout the procedure. Currently patient is asymptomatic of symptom s suggestive of ischemia. Vital signs are stable. He will finish poststress imaging in Nuclear [facility]. /[id number]/MODL
== END ==
LOC: FIMAGING 12:29
PROVIDERS: ATTEND Internal Medicine Cardiovascular Disease
DX: I25.10 Atherosclerotic heart disease of native coronary artery without angina pectoris (principal); R06.02 Shortness of breath; R05 Cough; E78.00 Pure hypercholesterolemia, unspecified
CPT/HCPCS: 78452; 93017; A9500; J2785

== ENCOUNTER → 2018-02-25 | Outpatient (CLI) | payer OTHER | LOC: FIMAGING 08:57 | PROVIDERS: ATTEND Internal Medicine Pulmonary Disease | DX: J84.9 Interstitial pulmonary disease, unspecified (principal) ==